=== PATIENT | male | born 1955 | race Caucasian/White ===

== ENCOUNTER 2020-05-11 11:25 | Emergency (ER) | payer BC, OTHER ==
[~2020-05-11] VITALS: Ht 180.3 cm; Wt 85.3 kg
[2020-05-11] MEDS ORDERED: CYCL-707 PO (11:41)
[2020-05-11] MEDS ORDERED: LISI-542 PO (11:41)
[2020-05-11] MEDS ORDERED: PRED10TA2 PO (11:41)
[2020-05-11] MEDS ORDERED: TIMO0.5S29 OU (11:41)
[2020-05-11] MEDS ORDERED: LATANOPROST (11:41)
[2020-05-11 12:26] LABS: BASO % 0.1 % (0.0-1.0); EOS % 0.1 % (0.0-3.0); HEMATOCRIT 39.7 % (42.0-52.0); LYMPH # 0.9 10^3/uL (1.5-5.0); LYMPH % 6.8 % (24.0-44.0); MEAN CORPUSCULAR HEMOGLOBIN 29.5 pg (27.0-33.0); MEAN CORPUSCULAR HGB CONC 32.7 g/dl (32.0-36.5); MEAN CORPUSCULAR VOLUME 90.2 fl (80.0-96.0); MONO # 0.4 10^3/uL (0.0-0.8); MONO % 2.9 % (0.0-5.0); NEUTROPHILS # 11.5 10^3/uL (1.5-8.5); NEUTROPHILS % 89.6 % (36.0-66.0); PLATELET COUNT, AUTOMATED 224 10^3/uL (150-450); WHITE BLOOD COUNT 12.9 10^3/uL (4.0-10.0)
[2020-05-11 12:44] LABS: ERYTHROCYTE SEDIMENTATION RATE 56 mm/hr (0-20)
[2020-05-11 12:53] LABS: BLOOD UREA NITROGEN 15 MG/DL (7-18); C REACTIVE PROTEIN QUANTITATIV 9.09 MG/DL (0.00-0.30); CALCIUM LEVEL 9.3 MG/DL (8.8-10.2); CARBON DIOXIDE LEVEL 27 MEQ/L (21-32); CHLORIDE LEVEL 106 MEQ/L (98-107); CREATININE FOR GFR 0.82 MG/DL (0.70-1.30); GLOMERULAR FILTRATION RATE > 60.0 (>49); GLUCOSE, FASTING 150 MG/DL (70-100); POTASSIUM SERUM 4.4 MEQ/L (3.5-5.1); SODIUM LEVEL 138 MEQ/L (136-145)
[2020-05-11] MEDS ORDERED: XALA0.007 OU (12:53)
[2020-05-11 13:20] VITALS: BP 162/87
== END 2020-05-11 13:34 | disposition home or self-care (01) ==
LOC: M ED 11:25
DX: R70.0 Elevated erythrocyte sedimentation rate (principal); R79.82 Elevated C-reactive protein (CRP); D72.829 Elevated white blood cell count, unspecified; G89.29 Other chronic pain; M25.519 Pain in unspecified shoulder; Z79.899 Other long term (current) drug therapy

== ENCOUNTER 2025-04-12 06:38 | Day surgery (SDC) | payer OTHER ==
[~2025-04-12] VITALS: Ht 180.3 cm; Wt 78.9 kg
[~2025-04-12 06:38] MED LIST: CYCL-707 PO; LATANOPROST; LISI10TA22 PO; LISI5TAB11 PO; PRED10TA2 PO; TIMO0.5S20 OU; XALA0.007 OU
[2025-04-12] MEDS ORDERED: GLYCOPYRROLATE INJ 0.2 MG/ML 2 ML VIAL As Ordered ONE (07:50)
[2025-04-12] MEDS ORDERED: LIDOCAINE 2% 100 MG/5 ML SDV (FOR ANES.) As Ordered ONE (07:50)
[2025-04-12] MEDS ORDERED: METOPROLOL 5 MG/5 ML VIAL As Ordered ONE (07:51)
[2025-04-12] MEDS ORDERED: hydrALAZINE 20 MG/ML 1 ML VIAL As Ordered ONE (08:04)
[2025-04-12 08:10] VITALS: TEMP 98.2
[2025-04-12 08:26] VITALS: BP 147/67; O2SAT 97
== END 2025-04-12 08:32 | disposition home or self-care (01) ==
LOC: M OPP 06:38
PROVIDERS: ATTEND Internal Medicine Gastroenterology
DX: Z12.11 Encounter for screening for malignant neoplasm of colon (principal); D12.3 Benign neoplasm of transverse colon; Z79.899 Other long term (current) drug therapy
CPT/HCPCS: 45380; 45385; 88305; J0360; J0616; J1596